=== PATIENT | male | born 1990 | race Caucasian/White ===

== ENCOUNTER 2017-11-04 12:51 | Emergency (ER) | payer BC ==
[2017-11-04] MEDS ORDERED: Sodium Chloride 0.9% 10 ML Syringe FLUSH PRN (13:04)
[2017-11-04] MEDS ORDERED: Sodium Chloride 0.9% 1,000 ML IV SCH (13:15)
--- NOTE | 2017-11-04 16:01 | EDM.PDOC ---
ED HPI GENERAL MEDICAL PROBLEM - General Chief Complaint: General Stated Complaint: FEELING OF PASSING OUT, RACING HEART Time Seen by Provider: 11/04/17 12:59 Source of Information: Reports: Patient History Limitations: Reports: No Limitations - History of Present Illness INITIAL COMMENTS - FREE TEXT/NARRATIVE: The patient presents with near syncope. He was sitting in his truck looking at his phone and he felt like he was going to pass out. He got tunnel vision and ringing in his ears. He felt like he was going out. He noticed that his heart was racing. He had no fever, chills, cough, chest pain, shortness of breath, abdominal pain, nausea, vomiting or diarrhea. He has no health problems. He does drink energy drinks and he does not eat very well. Onset: Gradual Duration: Minutes: Severity: Moderate Improves with: Reports: None Worsens with: Reports: None Associated Symptoms: Denies: Confusion, Chest Pain, Fever/Chills, Nausea/ Vomiting, Shortness of Breath - Related Data Allergies Allergy/AdvReac Type Severity Reaction Status Date / Time No Known Allergies Allergy Verified 11/04/17 13:07 Home Meds: Home Meds . [No Known Home Meds] 11/04/17 [History] Past Medical History - Past Health History Medical/Surgical History: Denies Medical/Surgical History Social & Family History - Tobacco Use Smoking Status *Q: Current Every Day Smoker Years of Tobacco use: 2 Packs/Tins Daily: 0.5 - Caffeine Use Caffeine Use: Reports: Energy Drinks, Soda - Recreational Drug Use Recreational Drug Use: No ED ROS GENERAL - Review of Systems Review Of Systems: See Below Constitutional: Reports: No Symptoms HEENT: Reports: No Symptoms Respiratory: Reports: No Symptoms Cardiovascular: Reports: Syncope Endocrine: Reports: No Symptoms GI/Abdominal: Reports: No Symptoms : Reports: No Symptoms ED EXAM, GENERAL - Physical Exam Exam: See Below Exam Limited By: No Limitations General Appearance: Alert, No Apparent Distress Ears: Normal External Exam Nose: Normal Inspection Head: Atraumatic, Normocephalic Neck: Normal Inspection, Supple, Non-Tender Respiratory/Chest: No Respiratory Distress, Lungs Clear, Normal Breath Sounds Cardiovascular: Regular Rate, Rhythm, No Edema, No Murmur GI/Abdominal: Soft, Non-Tender, No Organomegaly, No Mass Back Exam: Normal Inspection Extremities: Normal Inspection Neurological: Alert, Oriented, No Motor/Sensory Deficits EKG INTERPRETATION EKG Date: 11/04/17 Time: 13:20 Rhythm: Other (sinus tachycardia) Rate (Beats/Min): 103 [place]: Normal P-Wave: Present QRS: Normal ST-T: Normal QT: Normal Course - Vital Signs Last Recorded V/S: Last Vital Signs Temp 96.3 F 11/04/17 13:00 Pulse 104 H 11/04/17 13:00 Resp 17 11/04/17 13:00 BP 150/93 H 11/04/17 13:00 Pulse Ox 99 11/04/17 13:00 - Orders/Labs/Meds Orders: Active Orders 24 hr Category Date Time Status Cardiac Monitoring [RC] . DIRECTED Care 11/04/17 13:04 Active EKG Documentation Completion [RC] STAT Care 11/04/17 13:05 Active Holter Monitor 48 Hours [RC] .PRN Care 11/04/17 15:56 Ordered Peripheral IV Care [RC] . DIRECTED Care 11/04/17 13:05 Active Sodium Chloride 0.9% [Normal Saline] 1,000 ml Med 11/04/17 13:15 Active IV .BOLUS Sodium Chloride 0.9% [Saline Flush] Med 11/04/17 13:04 Active 10 ml FLUSH ASDIRECTED PRN Peripheral IV Insertion Adult [OM.PC] Stat Oth 11/04/17 13:04 Ordered Medication Orders Sodium Chloride (Normal Saline) 1,000 mls @ 1,000 mls/hr IV .BOLUS JAMSHID Last Admin: 11/04/17 13:43 Dose: 1,000 mls/hr Sodium Chloride (Saline Flush) 10 ml FLUSH ASDIRECTED PRN PRN Reason: Keep Vein Open Last Admin: 11/04/17 13:44 Dose: 10 ml Labs: Laboratory Tests 11/04/17 11/04/17 11/04/17 Range/Units 13:35 13:35 13:35 WBC 8.84 (4.23-9.07) K/mm3 RBC 5.65 (4.63-6.08) M/mm3 Hgb 16.0 (13.7-17.5) gm/L Hct 46.3 (40.1-51.0) % MCV 81.9 (79.0-92.2) fl MCH 28.3 (25.7-32.2) pg MCHC 34.6 (32.2-35.5) g/dl RDW Std Deviation 39.7 (35.1-43.9) fL Plt Count 309 (163-337) K/mm3 MPV 10.0 (9.4-12.3) fl Neut % (Auto) 60.3 (34.0-67.9) % Lymph % (Auto) 30.5 (21.8-53.1) % Young % (Auto) 8.0 (5.3-12.2) % Eos % (Auto) 0.8 (0.8-7.0) Baso % (Auto) 0.2 (0.1-1.2) % Neut # (Auto) 5.32 (1.78-5.38) K/mm3 Lymph # (Auto) 2.70 (1.32-3.57) K/mm3 Young # (Auto) 0.71 (0.30-0.82) K/mm3 Eos # (Auto) 0.07 (0.04-0.54) K/mm3 Baso # (Auto) 0.02 (0.01-0.08) K/mm3 D-Dimer, Quantitative < 0.19 L (0.19-0.59) mg/L Sodium 138 (136-145) mEq/L Potassium 3.5 (3.5-5.1) mEq/L Chloride 104 (98-107) mEq/L Carbon Dioxide 27 (21-32) mEq/L Anion Gap 10.5 (5-15) BUN 13 (7-18) mg/dL Creatinine 1.1 (0.7-1.3) mg/dL Est Cr Clr Drug Dosing 118.32 mL/min Estimated GFR (MDRD) > 60 (>60) mL/min BUN/Creatinine Ratio 11.8 L (14-18) Glucose 117 H (74-106) mg/dL Calcium 9.2 (8.5-10.1) mg/dL Total Bilirubin 0.5 (0.2-1.0) mg/dL AST 55 H (15-37) U/L ALT 150 H (16-63) U/L Alkaline Phosphatase 89 (46-116) U/L Troponin I < 0.017 (0.00-0.056) ng/mL Total Protein 8.3 H (6.4-8.2) g/dl Albumin 4.1 (3.4-5.0) g/dl Globulin 4.2 gm/dL Albumin/Globulin Ratio 1.0 (1-2) TSH 3rd Generation 1.203 (0.358-3.74) uIU/mL Meds: Medications Generic Name Dose Route Start Last Admin Trade Name Freq PRN Reason Stop Dose Admin Sodium Chloride 1,000 mls @ 1,000 mls/hr 11/04/17 13:15 11/04/17 13:43 Normal Saline IV 1,000 mls/hr .BOLUS JAMSHID Administration Sodium Chloride 10 ml 11/04/17 13:04 11/04/17 13:44 Saline Flush FLUSH 10 ml ASDIRECTED PRN Administration Keep Vein Open - Re-Assessments/Exams Free Text/Narrative Re-Assessment/Exam: 11/04/17 16:02 I ordered an IV NS 1L bolus, EKG, and labs. His EKG shows a NSR with no acute changes. His CBC looks good. His AST was elevated at 55. His ALT was elevated at 150. His troponin and D-dimer was negative. His TSH is normal. He feels better. I will get him on a holter monitor and stay off of the energy drinks. Departure - Departure Time of Disposition: 16:05 Disposition: Home, Self-Care 01 Condition: Good Clinical Impression: Near syncope - Discharge Information Referrals: PCP,None [Primary Care Provider] - Additional Instructions: Wear the holter monitor for 48 hours and return if. We should have results next week. Try to avoid any caffeine or energy drinks. This may give you a headache for a few days. The caffeine can raise your heart rate and could be the cause. Please return if you are worse. - My Orders Last 24 Hours: My Active Orders 11/04/17 13:04 Cardiac Monitoring [RC] . DIRECTED Sodium Chloride 0.9% [Saline Flush] 10 ml FLUSH ASDIRECTED PRN Peripheral IV Insertion Adult [OM.PC] Stat 11/04/17 13:05 EKG Documentation Completion [RC] STAT Peripheral IV Care [RC] . DIRECTED 11/04/17 13:15 Sodium Chloride 0.9% [Normal Saline] 1,000 ml IV .BOLUS 11/04/17 15:56 Holter Monitor 48 Hours [RC] .PRN - Assessment/Plan Last 24 Hours: My Active Orders 11/04/17 13:04 Cardiac Monitoring [RC] . DIRECTED Sodium Chloride 0.9% [Saline Flush] 10 ml FLUSH ASDIRECTED PRN Peripheral IV Insertion Adult [OM.PC] Stat 11/04/17 13:05 EKG Documentation Completion [RC] STAT Peripheral IV Care [RC] . DIRECTED 11/04/17 13:15 Sodium Chloride 0.9% [Normal Saline] 1,000 ml IV .BOLUS 11/04/17 15:56 Holter Monitor 48 Hours [RC] .PRN
== END 2017-11-04 16:15 | disposition home or self-care (01) ==
LOC: JD.ED 12:51
DX: R55 Syncope and collapse (principal); F17.210 Nicotine dependence, cigarettes, uncomplicated
CPT/HCPCS: 36415; 80053; 84443; 84484; 85025; 85379; 93005; 93225; 93226; 96360; 99284; J7040; J7050; 93010